=== PATIENT | female | born 1940 | race Caucasian/White ===

== ENCOUNTER → 2018-03-27 | Outpatient (CLI) | payer MEDICARE ==
[2018-03-27 13:48] VITALS: BP 161/90
== END | disposition home or self-care (01) ==
LOC: WHH 10:25
PROVIDERS: ATTEND Surgery
DX: I83.018 Varicose veins of right lower extremity with ulcer other part of lower leg (principal); E11.622 Type 2 diabetes mellitus with other skin ulcer; L97.811 Non-pressure chronic ulcer of other part of right lower leg limited to breakdown of skin; L97.821 Non-pressure chronic ulcer of other part of left lower leg limited to breakdown of skin; I89.0 Lymphedema, not elsewhere classified; I25.10 Atherosclerotic heart disease of native coronary artery without angina pectoris; I11.0 Hypertensive heart disease with heart failure; I50.9 Heart failure, unspecified; M19.90 Unspecified osteoarthritis, unspecified site
CPT/HCPCS: 29580; A4450; A6456; G0463

== ENCOUNTER → 2019-02-04 | Outpatient (CLI) | payer MEDICARE ==
[2019-02-04 14:28] VITALS: BP 109/61
== END | disposition home or self-care (01) ==
LOC: WHH 10:30
PROVIDERS: ATTEND Podiatrist Foot & Ankle Surgery
DX: E11.622 Type 2 diabetes mellitus with other skin ulcer (principal); I83.023 Varicose veins of left lower extremity with ulcer of ankle; L97.322 Non-pressure chronic ulcer of left ankle with fat layer exposed; I87.8 Other specified disorders of veins; I25.10 Atherosclerotic heart disease of native coronary artery without angina pectoris; I11.0 Hypertensive heart disease with heart failure; I50.9 Heart failure, unspecified; I25.2 Old myocardial infarction; I89.0 Lymphedema, not elsewhere classified; M19.90 Unspecified osteoarthritis, unspecified site; E66.01 Morbid (severe) obesity due to excess calories; N28.9 Disorder of kidney and ureter, unspecified
CPT/HCPCS: A4450; A6197; G0463